=== PATIENT | female | born 1995 | race Caucasian/White ===

== ENCOUNTER 2017-02-21 15:43 | Emergency (ER) | payer BC ==
[2017-02-21 15:53] VITALS: BP 125/73
--- NOTE | 2017-02-21 18:07 | ED ---
Headache - HPI Summary HPI Summary: Patient arrives to ED after 1 week of assumed concussion from falling out of bed and hitting occiptal area of head on a table. She denies LOC or memory loss or confusion. Denies N/V. Patient was intoxicated at the time, and doesn' t recall all the events. She went to student health the next day who stated she most likely had a concussion. She was able to go to school and drive this week, although with increasing pain, SIBLEY, and photophobia. She comes to ED to request a CT brain and excuse from school. She has not taken anything for her symptoms other than tylenol x2. She denies difficulty concentrating, but states the SIBLEY is making it hard to continue to go to class, etc. Denies insomnia. There is no deformity over the head and she is otherwise healthy. She takes no medications. She denies other pain or complaints at this time. Medical history reviewed. - History Of Current Complaint Chief Complaint: EDHeadInjury Stated Complaint: DX CONCUSSION/WORSENING SYMPTOMS Time Seen by Provider: 02/21/17 16:48 Hx Obtained From: Patient Onset/Duration: Started days ago - 7 Initially Headache Was: Initial Pain Scale(0-10)= - 9 Timing: Intermittent, Lasting:, Hours Character: Sharp, Throbbing Location of Headache: Diffuse, Occipital Aggravating Factor: Nothing Allevating Factors: Rest Associated Signs And Symptoms: Dizziness, Visual Changes - Risk Factors SAH Risk Factors: Negative Meningitis Risk Factors: Negative SDH Risk Factors: Negative Temporal Arteritis Risk Factors: Negative - Allergies/Home Medications Allergies/Adverse Reactions: Allergies Allergy/AdvReac Type Severity Reaction Status Date / Time Amoxicillin Allergy Rash Verified 02/21/17 15:49 Methotrexate Allergy Rash Verified 02/21/17 15:49 PMH/Surg Hx/FS Hx/Imm Hx Previously Healthy: Yes - Immunization History Hx Pertussis Vaccination: No Immunizations Up to Date: No Infectious Disease History: No Infectious Disease History: Denies: Traveled Outside the [place] in Last 30 Days - Social History Occupation: Employed Full-time Lives: With Family Alcohol Use: Rare Hx Substance Use: Yes Substance Use Type: Reports: Marijuana Smoking Status (MU): Never Smoked Tobacco Review of Systems Constitutional: Negative Positive: Photophobia, Blurred Vision Cardiovascular: Negative Respiratory: Negative Positive: no symptoms reported, see HPI Musculoskeletal: Negative Positive: Headache Psychological: Normal All Other Systems Reviewed And Are Negative: Yes Physical Exam Triage Information Reviewed: Yes Vital Signs On Initial Exam: Initial Vitals Temp Pulse Resp BP Pulse Ox 97.6 F 74 16 125/73 100 02/21/17 15:49 02/21/17 15:49 02/21/17 15:49 02/21/17 15:49 02/21/17 15:49 Vital Signs Reviewed: Yes Appearance: Positive: Well-Appearing, Well-Nourished Skin: Positive: Warm, Skin Color Reflects Adequate Perfusion Eyes: Positive: EOMI, JENNIFER, Conjunctiva Inflammed Neck: Positive: Supple, No Lymphadenopathy Respiratory/Lung Sounds: Positive: Clear to Auscultation, Breath Sounds Present Cardiovascular: Positive: Normal, RRR Musculoskeletal: Positive: Normal, Strength/ROM Intact Neurological: Positive: Normal, Sensory/Motor Intact Psychiatric: Positive: Normal AVPU Assessment: Alert - Latrice Coma Scale Best Eye Response: 4 - Spontaneous Best Motor Response: 6 - Obeys Commands Best Verbal Response: 5 - Oriented Diagnostics - Vital Signs Vital Signs Temp Pulse Resp BP Pulse Ox 02/21/17 15:53 97.6 F 74 16 125/73 100 02/21/17 15:49 97.6 F 74 16 125/73 100 - Laboratory Lab Statement: Any lab studies that have been ordered have been reviewed, and results considered in the medical decision making process. Headache Course/Dx - Course Course Of Treatment: CT brain: IMPRESSION: No intracranial mass or hemorrhage is noted. Patient is taken out of school and other activities and encouraged to remain on complete brain rest until next week. It is likely she has sustained a concussion last week and was not placed on rest. Today she arrives with worsening SIBLEY, photophobia. Will remain on brain rest for 1 week - this was communicated to patient and she agrees. If symptoms become worse, she is to follow up with neuro or health center. She is able to return to class and activities next week unless she is still feeling symptoms, in which she is encouraged to go to student health and remain on brain rest. Patient agrees with discharge plan. - Diagnoses Differential Diagnosis/HQI/PQRI: Subdural Hematoma, Migraine, Tension Headache Provider Diagnoses: Concussion Discharge - Discharge Plan Condition: Stable Disposition: HOME Patient Education Materials: Concussion (ED), Post Concussion Syndrome (ED) Forms: *School Release Referrals: [facility] [Primary Care Provider] - Additional Instructions: Rest for the next week. Note for school to be off for 1 week. Follow up with PCP or student health if symptoms do not improve in 1 week. Tylenol and excedrin for headache.
--- NOTE | 2017-02-21 18:13 | RAD ---
Indication: Headaches. CT of the brain was performed without IV contrast. Ventricular structures are midline. No midline shift is noted. The extra-axial spaces are unremarkable. There is no evidence of intracranial mass or hemorrhage. No other high or low density lesions are identified. Mastoid air cells and paranasal sinuses are otherwise unremarkable. IMPRESSION: No intracranial mass or hemorrhage is noted.
== END 2017-02-21 18:37 | disposition home or self-care (01) ==
LOC: ED 15:43
DX: S06.0X0A Concussion without loss of consciousness, initial encounter (principal); R42 Dizziness and giddiness; R51 Headache; H53.149 Visual discomfort, unspecified; W06.XXXA Fall from bed, initial encounter; Y93.9 Activity, unspecified; Y92.9 Unspecified place or not applicable
CPT/HCPCS: 70450; 99281

== ENCOUNTER 2017-11-28 16:45 | Emergency (ER) | payer BC ==
[2017-11-28 19:04] LABS: ABS Basophils 0 10^3/ul (0-0.2); ABS Eosinophils 0 10^3/ul (0-0.6); ABS Lymphocytes 1.3 10^3/ul (1.0-4.8); ABS Monocytes 0.3 10^3/ul (0-0.8); ABS Neutrophils 6.6 10^3/ul (1.5-7.7); ABS Nucleated RBC 0 10^3/ul; Eosinophil % 0.2 % (0-6); Hematocrit 42 % (35-47); Hemoglobin 14.4 g/dl (12.0-16.0); Mean Corpuscular HGB Conc 34 g/dl (31-36); Mean Corpuscular Hemoglobin 31 pg (27-31); Mean Corpuscular Volume 92 fL (80-97); Mean Platelet Volume 9 um3 (7.4-10.4); Nucleated Red Blood Cells % 0.1; Platelet Count 223 10^3/ul (150-450); Red Cell Distribution Width 12 % (10.5-15); White Blood Count 8.3 10^3/ul (3.5-10.8)
[2017-11-28 19:21] LABS: EGFR Non-African American 122.6 (>60)
[2017-11-28] MEDS ORDERED: NS 0.9% 1000 ML* 1,000 ML IV ONE (20:21)
[2017-11-28] MEDS ORDERED: Ondansetron INJ* 2 MG/ML VIAL IV ONE (20:21)
[2017-11-28 20:42] LABS: Urine Appearance Cloudy; Urine Blood Negative (Negative); Urine Color Yellow; Urine Ketones Trace (Negative); Urine Protein Negative (Negative); Urine Specific Gravity 1.013 (1.010-1.030); Urine Urobilinogen Negative (Negative)
[2017-11-28] MEDS ORDERED: O ndansetron ODT 4MG 2TAB PRPK 4 MG PAK PO ONE (21:13)
--- NOTE | 2017-11-28 21:14 | ED ---
GI/ HPI - HPI Summary HPI Summary: 22-year-old female presents with nausea and vomiting since last night. She states she had some alcohol to drink. She states she has not had this before. She denies any abdominal pain. She denies any fevers. She denies any diarrhea. She denies any pain with Urination. She denies any chest pain or shortness of breath. She denies any previous surgeries. She has not taken anything. She has been not been able to keep anything down today. She states she feels dehydrated. - History of Current Complaint Chief Complaint: EDNauseaVomitDiarrh Time Seen by Provider: 11/28/17 20:20 Stated Complaint: N/V Pain Intensity: 0 - Allergy/Home Medications Allergies/Adverse Reactions: Allergies Allergy/AdvReac Type Severity Reaction Status Date / Time Amoxicillin Allergy Rash Verified 11/28/17 16:59 Methotrexate Allergy Rash Verified 11/28/17 16:59 PMH/Surg Hx/FS Hx/Imm Hx Endocrine/Hematology History: Denies: Hx Anticoagulant Therapy Cardiovascular History: Denies: Hx Myocardial Infarction Infectious Disease History: No Infectious Disease History: Denies: Traveled Outside the [place] in Last 30 Days - Family History Known Family History: Negative: Hypertension - Social History Alcohol Use: Occasionally Hx Substance Use: Yes Substance Use Type: Reports: None Smoking Status (MU): Never Smoked Tobacco Review of Systems Negative: Fever Negative: Chest Pain Negative: Shortness Of Breath Positive: Vomiting. Negative: Abdominal Pain, Diarrhea All Other Systems Reviewed And Are Negative: Yes Physical Exam Triage Information Reviewed: Yes Vital Signs On Initial Exam: Initial Vitals Temp Pulse Resp BP Pulse Ox 98.6 F 87 16 119/76 98 11/28/17 16:59 11/28/17 16:59 11/28/17 16:59 11/28/17 16:59 11/28/17 16:59 Vital Signs Reviewed: Yes Appearance: Positive: Well-Appearing Skin: Positive: Warm, Dry Head/Face: Positive: Normal Head/Face Inspection Eyes: Positive: Normal, Conjunctiva Clear Respiratory/Lung Sounds: Positive: Clear to Auscultation, Breath Sounds Present Cardiovascular: Positive: Normal, RRR Abdomen Description: Positive: Nontender, Soft Bowel Sounds: Positive: Present Musculoskeletal: Positive: Normal Neurological: Positive: Normal Psychiatric: Positive: Normal Diagnostics - Vital Signs Vital Signs Temp Pulse Resp BP Pulse Ox 11/28/17 20:30 114/67 11/28/17 20:29 66 99 11/28/17 20:27 115/63 11/28/17 18:57 98.6 F 74 18 111/66 97 11/28/17 16:59 98.6 F 87 16 119/76 98 - Laboratory Lab Results: Lab Results 11/28/17 11/28/17 11/28/17 Range/Units 18:50 18:50 20:25 WBC 8.3 (3.5-10.8) 10^3/ul RBC 4.60 (4.0-5.4) 10^6/ul Hgb 14.4 (12.0-16.0) g/dl Hct 42 (35-47) % MCV 92 (80-97) fL MCH 31 (27-31) pg MCHC 34 (31-36) g/dl RDW 12 (10.5-15) % Plt Count 223 (150-450) 10^3/ul MPV 9 (7.4-10.4) um3 Neut % (Auto) 79.7 (38-83) % Lymph % (Auto) 16.0 L (25-47) % [place] % (Auto) 3.8 (1-9) % Eos % (Auto) 0.2 (0-6) % Baso % (Auto) 0.3 (0-2) % Absolute Neuts (auto) 6.6 (1.5-7.7) 10^3/ul Absolute Lymphs (auto) 1.3 (1.0-4.8) 10^3/ul Absolute Monos (auto) 0.3 (0-0.8) 10^3/ul Absolute Eos (auto) 0 (0-0.6) 10^3/ul Absolute Basos (auto) 0 (0-0.2) 10^3/ul Absolute Nucleated RBC 0 10^3/ul Nucleated RBC % 0.1 Sodium 134 (133-145) mmol/L Potassium 3.7 (3.5-5.0) mmol/L Chloride 99 L (101-111) mmol/L Carbon Dioxide 27 (22-32) mmol/L Anion Gap 8 (2-11) mmol/L BUN 6 (6-24) mg/dL Creatinine 0.61 (0.51-0.95) mg/dL Est GFR ( Amer) 157.7 (>60) Est GFR (Non-Af Amer) 122.6 (>60) BUN/Creatinine Ratio 9.8 (8-20) Glucose 89 (70-100) mg/dL Calcium 9.4 (8.6-10.3) mg/dL Total Bilirubin 0.60 (0.2-1.0) mg/dL AST 20 (13-39) U/L ALT 17 (7-52) U/L Alkaline Phosphatase 46 (34-104) U/L C-React Prot High Sens 2.43 mg/L Total Protein 8.4 (6.4-8.9) g/dL Albumin 4.8 (3.2-5.2) g/dL Globulin 3.6 (2-4) g/dL Albumin/Globulin Ratio 1.3 (1-3) Lipase 18 (11.0-82.0) U/L Beta HCG, Quant < 0.60 mIU/mL Urine Color Yellow Urine Appearance Cloudy Urine pH 7.0 (5-9) Ur Specific [place] 1.013 (1.010-1.030) Urine Protein Negative (Negative) Urine Ketones Trace H (Negative) Urine Blood Negative (Negative) Urine Nitrate Negative (Negative) Urine Bilirubin Negative (Negative) Urine Urobilinogen Negative (Negative) Ur Leukocyte Esterase Negative (Negative) Urine Glucose Negative (Negative) Urine Ascorbic Acid * H (Negative) Result Diagrams: 11/28/17 18:50 11/28/17 18:50 Lab Statement: Any lab studies that have been ordered have been reviewed, and results considered in the medical decision making process. GIGU Course/Dx - Course Course Of Treatment: 22-year-old female presents with nausea and vomiting since last night. She states she had some alcohol to drink. She states she has not had this before. She denies any abdominal pain. She denies any fevers. She denies any diarrhea. She denies any pain with Urination. She denies any chest pain or shortness of breath. She denies any previous surgeries. She has not taken anything. She has been not been able to keep anything down today. She states she feels dehydrated. On exam abdomen soft nontender. Labs within normal limits. The patient fluids and Zofran and feeling better. Discharged with Zofran. Patient understands and agrees the plan. - Diagnoses Differential Diagnoses - Female: Gastroenteritis (Viral), Gastroenteritis ( Bacterial), Vomiting Provider Diagnoses: Vomiting Discharge - Discharge Plan Condition: Good Disposition: HOME Prescriptions: Ondansetron ODT TAB* [Zofran 4 MG Odt TAB*] 4 mg PO Q6H PRN #12 tab.odt PRN Reason: Nausea Patient Education Materials: Acute Nausea and Vomiting (ED) Referrals: [facility] [Primary Care Provider] - Additional Instructions: Can take Zofran every 6 hours as needed for nausea Drink small amounts of fluid as tolerated When able to eat follow BRAT diet: Bananas, rice, applesauce, toast Take ibuprofen or Tylenol for pain as needed every 6 hours Follow up with primary within 5 days Return to ED if develop any new or worsening symptoms
[2017-11-28 22:22] VITALS: BP 93/75
== END 2017-11-28 22:22 | disposition home or self-care (01) ==
LOC: ED 16:45
DX: R11.10 Vomiting, unspecified (principal)
CPT/HCPCS: 36415; 80053; 81003; 83690; 84702; 85025; 86141; 96360; 96374; 99282; A9270-GY; J2405

== ENCOUNTER 2018-02-23 07:22 | Emergency (ER) | payer BC ==
[2018-02-23 07:57] VITALS: BP 108/70
--- NOTE | 2018-02-23 09:27 | RAD ---
INDICATION: RIGHT lower extremity pain. Post round trip to [place]. On control. COMPARISON: No relevant prior exams available on the [facility] PACS for comparison. TECHNIQUE: Fournier scale, color Doppler, and spectral analysis of the deep veins of the RIGHT lower extremity. Vessel compression, phasicity, and augmentation assessed. REPORT: The RIGHT common femoral, great saphenous, profunda femoral, femoral, popliteal, peroneal, and posterior tibial veins are patent. Patency of the LEFT common femoral vein documented. IMPRESSION: No evidence for RIGHT lower extremity deep venous thrombosis.
--- NOTE | 2018-02-23 09:38 | UC ---
Lower Extremity/Ankle HPI - HPI Summary HPI Summary: 22 yo WF c/o right back of knee and calf pain x 1 month. Pt is on OCP and drives to [place] monthly here to home. Currently on Plaquenil for RA - History of Current Complaint Chief Complaint: UCLowerExtremity Stated Complaint: PAIN IN LOWER LEG AND KNEE PAIN Time Seen by Provider: 02/23/18 08:32 Hx Obtained From: Patient Hx From Patient Unobtainable Due To: Other Hx Last Menstrual Period: every 3 months ?: No Severity Currently: Moderate Pain Intensity: 4 Aggravating Factor(s): Nothing - Allergies/Home Medications Allergies/Adverse Reactions: Allergies Allergy/AdvReac Type Severity Reaction Status Date / Time amoxicillin Allergy Rash Verified 02/23/18 07:58 methotrexate Allergy Rash Verified 02/23/18 07:58 Home Medications: Home Medications Hydroxychloroquine TAB* [Plaquenil TAB*] 200 mg PO DAILY 02/23/18 [History Confirmed 02/23/18] l-Norgest/E.estradiol-E.estrad [Camrese] 1 tab PO 02/23/18 [History] PMH/Surg Hx/FS Hx/Imm Hx - Additional Past Medical History Additional PMH: RA Previously Healthy: Yes Other History Of: Negative For: Anticoagulant Therapy - Surgical History Surgical History: None - Family History Known Family History: Negative: Hypertension - Social History Alcohol Use: Occasionally Substance Use Type: None Smoking Status (MU): Never Smoked Tobacco Review of Systems Constitutional: Negative Skin: Negative Eyes: Negative ENT: Negative Respiratory: Negative Cardiovascular: Negative Gastrointestinal: Negative Genitourinary: Negative Motor: Negative Neurovascular: Negative Musculoskeletal: Calf Tenderness Neurological: Negative Psychological: Negative All Other Systems Reviewed And Are Negative: Yes Physical Exam Triage Information Reviewed: Yes Appearance: Well-Appearing Vital Signs: Initial Vital Signs Temp 36.7 C 02/23/18 07:51 Pulse 72 02/23/18 07:51 Resp 18 02/23/18 07:51 BP 108/70 02/23/18 07:51 Pulse Ox 99 02/23/18 07:51 Vital Signs Reviewed: Yes Eye Exam: Normal ENT Exam: Normal Dental Exam: Normal Neck exam: Normal Neck: Positive: 1 Respiratory Exam: Normal Cardiovascular Exam: Normal Abdominal Exam: Normal Musculoskeletal: Positive: ROM Intact, Other: - mild TTP on back of right knee and calf, Neg Homann's sign Neurological Exam: Normal Psychological Exam: Normal Skin Exam: Normal Lower Extremity Course/Dx - Course Course Of Treatment: US RLE NEG for DVT, f/u with rheum and PCP, keep hydrated - Differential Dx/Diagnosis Provider Diagnoses: RLE pain. right calf pain Discharge - Sign-Out/Discharge Documenting (check all that apply): Discharge/Admit/Transfer - Discharge Plan Condition: Stable Disposition: HOME Patient Education Materials: Muscle Cramp (ED) [facility] [[facility] Care Provider] - Additional Instructions: follow up with PCP and keep hydrated - Billing Disposition and Condition Condition: STABLE Disposition: HOME
== END 2018-02-23 09:32 | disposition home or self-care (01) ==
LOC: UCEAST 07:22
DX: M25.561 Pain in right knee (principal); M79.661 Pain in right lower leg; M06.9 Rheumatoid arthritis, unspecified; Z88.0 Allergy status to penicillin; Z88.8 Allergy status to other drugs, medicaments and biological substances
CPT/HCPCS: 99211; G0463

== ENCOUNTER 2018-03-06 15:16 | Emergency (ER) | payer BC ==
[2018-03-06 15:35] VITALS: BP 126/75
--- NOTE | 2018-03-06 16:32 | UC ---
Abdominal Pain Female HPI - HPI Summary HPI Summary: This is a 22 yo female with RA who presents with c/o abdominal pain. Symptoms started a couple of months ago. She has had intermittent sharp and burning pain , occasionally relieved by TUMS. It sometimes wakes her up tonight. She has avoided ETOH due to her stomach pain until last night when she had 4 alcoholic beverages and began having abd pain while eating and vomited this am and has been mildly nauseated the rest of the day. No diarrhea. - History of Current Complaint Chief Complaint: UCAbdominalPain Stated Complaint: ABD PAIN Hx Last Menstrual Period: 03/03/18 Pain Intensity: 3 Allergies/Adverse Reactions: Allergies Allergy/AdvReac Type Severity Reaction Status Date / Time amoxicillin Allergy Rash Verified 03/06/18 15:35 methotrexate Allergy Rash Verified 03/06/18 15:35 PMH/Surg Hx/FS Hx/Imm Hx Previously Healthy: No - RA Other History Of: Negative For: Anticoagulant Therapy - Surgical History Surgical History: None - Family History Known Family History: Negative: Hypertension - Social History Alcohol Use: Occasionally Substance Use Type: None Smoking Status (MU): Never Smoked Tobacco Review of Systems Constitutional: Negative Skin: Negative Eyes: Negative ENT: Negative Respiratory: Negative Cardiovascular: Negative Gastrointestinal: Abdominal Pain, Vomiting Genitourinary: Negative Motor: Negative Neurovascular: Negative Musculoskeletal: Negative Neurological: Negative Psychological: Negative Is Patient Immunocompromised?: No All Other Systems Reviewed And Are Negative: Yes Physical Exam Triage Information Reviewed: Yes Appearance: Well-Appearing Vital Signs: Initial Vital Signs Temp 98.0 F 03/06/18 15:30 Pulse 62 03/06/18 15:30 Resp 18 03/06/18 15:30 BP 126/75 03/06/18 15:30 Pulse Ox 100 03/06/18 15:30 Vital Signs Reviewed: Yes ENT Exam: Normal Neck exam: Normal Respiratory Exam: Normal Cardiovascular Exam: Normal Abdomen Description: Positive: Soft, Other: - mild epigastric TTP Bowel Sounds: Positive: Present Musculoskeletal Exam: Normal Neurological Exam: Normal Psychological Exam: Normal Skin Exam: Normal Abd Pain Female Course/Dx - Course Course Of Treatment: 22 yo female with intermittent abd pain with mild epigastric TTP. Likely gastritis. Recommend bid PPI therapy x 2 weeks with follow up with PCP. May need EGD or gallbladder US if her symptoms do not improve. - Differential Dx/Diagnosis Differential Diagnosis: Gall Bladder Disease, Irritable Bowel Syndrome, Peptic Ulcer Disease Provider Diagnoses: 1. Abdominal pain - suspect gastritis Discharge - Sign-Out/Discharge Documenting (check all that apply): Discharge/Admit/Transfer - Discharge Plan Condition: Stable Disposition: HOME Prescriptions: Omeprazole CAP* [Prilosec CAP* 20 MG] 20 mg PO BID #28 cap. Patient Education Materials: Gastritis (ED) [facility] [[facility] - Additional Instructions: Instructions: 1. Please take omeprazole as directed 2. Follow up with primary care provider regarding symptoms - Billing Disposition and Condition Condition: STABLE Disposition: HOME
== END 2018-03-06 16:35 | disposition home or self-care (01) ==
LOC: UCEAST 15:16
DX: R10.13 Epigastric pain (principal); M06.9 Rheumatoid arthritis, unspecified; Z88.0 Allergy status to penicillin; Z88.8 Allergy status to other drugs, medicaments and biological substances
CPT/HCPCS: 99212; G0463